=== PATIENT | male | born 1950 | race Caucasian/White ===

== ENCOUNTER 2017-08-14 14:25 | Inpatient (IN) | payer MEDICARE, OTHER ==
[2017-08-14] MEDS ORDERED: ONDANSETRON 4 MG INJ (16:44)
[2017-08-14] MEDS ORDERED: PROPOFOL 20 ML (16:44)
[2017-08-14] MEDS ORDERED: ROCURONIUM 50 MG INJ (16:44)
[2017-08-14] MEDS ORDERED: FENTAnyl 50 MCG/ML VIAL ×2 (17:08→17:49)
[2017-08-14] MEDS: LIDOCAINE 1%/EPI 30 ML INJ (17:14)
[2017-08-14] MEDS: COCAINE 4% 4 ML TOP (17:14)
[2017-08-14] MEDS ORDERED: METOCLOPRAMIDE 10 MG INJ (17:16)
[2017-08-14] MEDS ORDERED: hydrALAzine 20 MG INJ (17:17)
[2017-08-14] MEDS ORDERED: SUCCINYLCHOLINE CHLORIDE 100 MG/5 ML SYG IV (17:18)
[2017-08-14] MEDS ORDERED: HYDROmorphONE (0.2 MG/ML) 10ML SYG IV ×2 (17:30)
[2017-08-14] MEDS: hydrALAzine 20 MG INJ IV ×2 (18:13→21:24)
[2017-08-14] MEDS: LABETALOL HCL 20MG INJ IV (18:16)
[2017-08-14] MEDS: HYDROmorphONE (0.2 MG/ML) 10ML SYG IV (19:13)
[2017-08-14] MEDS: ONDANSETRON 4 MG INJ IV (21:07)
[2017-08-14] MEDS: morphine 10 MG INJ IM (21:32)
[2017-08-15] MEDS: HYDROCODONE/APAP (5/325) TAB PO ×3 (05:19→14:26)
[2017-08-15 05:55] LABS: ADD MAN DIFF? NO
[2017-08-15 06:03] LABS: BASOPHIL # 0.1 10^3/ul (0.0-0.1); BASOPHILS % 0.4 % (0.0-2.0); EOSINOPHILS % 0.2 % (0.0-7.0); HEMATOCRIT 37.5 % (42.0-52.0); HEMOGLOBIN 12.6 g/dl (14.0-18.0); LYMPHOCYTES # 2.1 10^3/ul (0.8-2.9); MEAN CORPUSCULAR HEMOGLOBIN 28.8 pg (29.0-33.0); MEAN CORPUSCULAR HGB CONC 33.6 g/dl (32.0-37.0); MEAN CORPUSCULAR VOLUME 85.6 fl (82.0-101.0); MEAN PLATELET VOLUME 10.4 fl (7.4-10.4); MONOCYTE # 1.1 10^3/ul (0.3-0.9); NEUTROPHIL # 12.6 10^3/ul (1.6-7.5); PLATELET COUNT 273 10^3/UL (140-415); RED BLOOD COUNT 4.38 10^6/ul (4.70-6.10); RED CELL DISTRIBUTION WIDTH 17.2 % (11.5-14.5)
[2017-08-15 06:03] LABS: WHITE BLOOD COUNT 15.9 10^3/ul (4.8-10.8)
[2017-08-15 07:34] LABS: ANION GAP 17 (8-16); BLOOD UREA NITROGEN 24 mg/dl (7-20); CALCIUM 9.2 mg/dl (8.4-10.2); CARBON DIOXIDE 23 mmol/L (21-31); CHLORIDE 105 mmol/L (97-110); CREATININE 1.44 mg/dl (0.61-1.24); GLUCOSE 105 mg/dl (70-220); MAGNESIUM 1.6 mg/dl (1.7-2.5); POTASSIUM 4.5 mmol/L (3.5-5.1); SODIUM 140 mmol/L (135-144)
[2017-08-15] MEDS: LISINOPRIL 5 MG TAB PO (08:55)
[2017-08-15] MEDS: ACETAMINOPHEN 325 MG TAB PO (10:03)
[2017-08-15] MEDS: LACTATED RINGER'S 1,000 ML IV (14:24)
[2017-08-15] MEDS: ONDANSETRON 4 MG INJ IV (14:24)
[2017-08-15] MEDS: OXYCODONE/ACETAMINOPHEN (5/325) TAB PO ×3 (14:28→23:11)
[2017-08-15] MEDS ORDERED: AMLODIPINE 5 MG TAB PO (15:00)
[2017-08-15 16:51] LABS: ADD UMIC YES; UR ASCORBIC ACID NEGATIVE (NEGATIVE); UR BILIRUBIN (Dip) NEGATIVE (NEGATIVE); UR BLOOD (Dip) 2+ mg/dL (NEGATIVE); UR CLARITY CLEAR (CLEAR); UR COLOR YELLOW (YELLOW); UR GLUCOSE (Dip) NEGATIVE (NEGATIVE); UR KETONES (Dip) NEGATIVE (NEGATIVE); UR LEUKOCYTE ESTERASE (Dip) 1+ Leu/ul (NEGATIVE); UR NITRITE (Dip) NEGATIVE (NEGATIVE); UR RBC 9 /HPF (0-5); UR TOTAL PROTEIN (Dip) NEGATIVE (NEGATIVE); UR UROBILINOGEN (Dip) NEGATIVE (NEGATIVE); UR WBC 19 /HPF (0-5)
[2017-08-15 16:59] LABS: SODIUM,URINE RANDOM 45 mmol/L (30-90)
[2017-08-15 16:59] LABS: CREATININE,URINE RANDOM 211.92 mg/dl (20-370)
[2017-08-15] MEDS: MAGNESIUM SULFATE 2 GM/50 ML 50 ML IVPB (17:01)
[2017-08-15] MEDS: TERAZOSIN 5 MG CAP PO (20:25)
[2017-08-15] MEDS: AMLODIPINE 5 MG TAB PO (20:25)
[2017-08-16] MEDS ORDERED: ALBUTEROL/IPRATROPIUM (NEB) 3 ML AMP HHN
[2017-08-16 05:17] LABS: ADD MAN DIFF? NO
[2017-08-16 05:22] LABS: WHITE BLOOD COUNT 11.6 10^3/ul (4.8-10.8)
[2017-08-16 05:22] LABS: BASOPHILS % 0.3 % (0.0-2.0); EOSINOPHILS # 0.1 10^3/ul (0.0-0.5); EOSINOPHILS % 0.7 % (0.0-7.0); HEMATOCRIT 34.1 % (42.0-52.0); HEMOGLOBIN 11.4 g/dl (14.0-18.0); LYMPHOCYTES % 17.2 % (15.0-51.0); MEAN CORPUSCULAR HEMOGLOBIN 29.2 pg (29.0-33.0); MEAN CORPUSCULAR HGB CONC 33.4 g/dl (32.0-37.0); MEAN CORPUSCULAR VOLUME 87.2 fl (82.0-101.0); MEAN PLATELET VOLUME 9.9 fl (7.4-10.4); MONOCYTE # 0.7 10^3/ul (0.3-0.9); NEUTROPHIL # 8.7 10^3/ul (1.6-7.5); NEUTROPHILS % 75.4 % (39.0-77.0); PLATELET COUNT 228 10^3/UL (140-415); RED BLOOD COUNT 3.91 10^6/ul (4.70-6.10)
[2017-08-16 06:11] LABS: ANION GAP 11 (8-16); BLOOD UREA NITROGEN 29 mg/dl (7-20); CALCIUM 8.8 mg/dl (8.4-10.2); CARBON DIOXIDE 27 mmol/L (21-31); CHLORIDE 106 mmol/L (97-110); CREATININE 1.64 mg/dl (0.61-1.24); GLUCOSE 121 mg/dl (70-220); POTASSIUM 4.8 mmol/L (3.5-5.1); SODIUM 139 mmol/L (135-144)
[2017-08-16] MEDS: AMLODIPINE 5 MG TAB PO ×2 (08:46→21:32)
[2017-08-16] MEDS: HYDROCODONE/APAP (5/325) TAB PO (21:32)
[2017-08-16] MEDS: TERAZOSIN 5 MG CAP PO (21:32)
[2017-08-17 05:42] LABS: ADD MAN DIFF? NO
[2017-08-17 06:01] LABS: BASOPHILS % 0.4 % (0.0-2.0); EOSINOPHILS # 0.3 10^3/ul (0.0-0.5); EOSINOPHILS % 2.4 % (0.0-7.0); HEMATOCRIT 33.8 % (42.0-52.0); HEMOGLOBIN 11.3 g/dl (14.0-18.0); LYMPHOCYTES # 3.3 10^3/ul (0.8-2.9); LYMPHOCYTES % 30.2 % (15.0-51.0); MEAN CORPUSCULAR HEMOGLOBIN 29.3 pg (29.0-33.0); MEAN CORPUSCULAR HGB CONC 33.4 g/dl (32.0-37.0); MEAN CORPUSCULAR VOLUME 87.6 fl (82.0-101.0); MEAN PLATELET VOLUME 10.5 fl (7.4-10.4); MONOCYTE # 0.8 10^3/ul (0.3-0.9); MONOCYTES % 7.4 % (0.0-11.0); NEUTROPHIL # 6.4 10^3/ul (1.6-7.5); NEUTROPHILS % 59.3 % (39.0-77.0); PLATELET COUNT 233 10^3/UL (140-415); RED BLOOD COUNT 3.86 10^6/ul (4.70-6.10); RED CELL DISTRIBUTION WIDTH 16.8 % (11.5-14.5)
[2017-08-17 06:01] LABS: WHITE BLOOD COUNT 10.8 10^3/ul (4.8-10.8)
[2017-08-17 06:24] LABS: ANION GAP 14 (8-16); BLOOD UREA NITROGEN 33 mg/dl (7-20); CARBON DIOXIDE 26 mmol/L (21-31); CHLORIDE 102 mmol/L (97-110); CREATININE 1.51 mg/dl (0.61-1.24); GLUCOSE 88 mg/dl (70-220); POTASSIUM 4.5 mmol/L (3.5-5.1); SODIUM 137 mmol/L (135-144)
[2017-08-17] MEDS: AMLODIPINE 5 MG TAB PO ×2 (09:36→21:31)
[2017-08-17] MEDS: ACETAMINOPHEN 325 MG TAB PO (09:54)
[2017-08-17] MEDS ORDERED: DOCUSATE SODIUM 100 MG CAP PO (12:30)
[2017-08-17 12:42] LABS: CREATININE, RANDOM URINE 220 mg/dL (20-370); MICROALBUMIN 3.1 mg/dL; MICROALBUMIN/CREATININE RATIO 14 (<30)
[2017-08-17] MEDS: LACTOBACILLUS RHAMNOSUS CAP PO ×2 (13:21→21:31)
[2017-08-17] MEDS: NICOTINE (14 MG/24 HR) PATCH TRANSDERM (16:08)
[2017-08-17] MEDS: TERAZOSIN 5 MG CAP PO (21:31)
[2017-08-18 05:50] LABS: ADD MAN DIFF? NO
[2017-08-18 05:55] LABS: WHITE BLOOD COUNT 9.2 10^3/ul (4.8-10.8)
[2017-08-18 05:55] LABS: BASOPHIL # 0.1 10^3/ul (0.0-0.1); BASOPHILS % 0.8 % (0.0-2.0); EOSINOPHILS # 0.2 10^3/ul (0.0-0.5); EOSINOPHILS % 2.2 % (0.0-7.0); HEMATOCRIT 34.7 % (42.0-52.0); HEMOGLOBIN 11.7 g/dl (14.0-18.0); LYMPHOCYTES # 2.5 10^3/ul (0.8-2.9); LYMPHOCYTES % 27.7 % (15.0-51.0); MEAN CORPUSCULAR HGB CONC 33.7 g/dl (32.0-37.0); MEAN CORPUSCULAR VOLUME 86.1 fl (82.0-101.0); MEAN PLATELET VOLUME 9.6 fl (7.4-10.4); MONOCYTE # 0.7 10^3/ul (0.3-0.9); MONOCYTES % 7.9 % (0.0-11.0); NEUTROPHIL # 5.6 10^3/ul (1.6-7.5); NEUTROPHILS % 61.2 % (39.0-77.0); PLATELET COUNT 237 10^3/UL (140-415); RED BLOOD COUNT 4.03 10^6/ul (4.70-6.10); RED CELL DISTRIBUTION WIDTH 16.4 % (11.5-14.5)
[2017-08-18 06:20] LABS: INR 0.96; PROTIME 12.9 Sec (11.9-14.9)
[2017-08-18 06:32] LABS: ALANINE AMINOTRANSFERASE 21 IU/L (13-69); ALBUMIN 3.6 g/dl (3.3-4.9); ALBUMIN/GLOBULIN RATIO 1.02; ALKALINE PHOSPHATASE 45 IU/L (42-121); ANION GAP 13 (8-16); ASPARTATE AMINO TRANSFERASE 18 IU/L (15-46); BILIRUBIN,INDIRECT 0.3 mg/dl (0-1.1); BILIRUBIN,TOTAL 0.3 mg/dl (0.2-1.3); BLOOD UREA NITROGEN 36 mg/dl (7-20); CALCIUM 9.2 mg/dl (8.4-10.2); CARBON DIOXIDE 28 mmol/L (21-31); CHLORIDE 103 mmol/L (97-110); CREATININE 1.53 mg/dl (0.61-1.24); GLUCOSE 92 mg/dl (70-220); POTASSIUM 4.7 mmol/L (3.5-5.1); SODIUM 139 mmol/L (135-144); TOTAL PROTEIN 7.1 g/dl (6.1-8.1)
[2017-08-18] MEDS: AMLODIPINE 5 MG TAB PO (09:16)
[2017-08-18] MEDS: LACTOBACILLUS RHAMNOSUS CAP PO (09:17)
== END 2017-08-18 13:26 | disposition home or self-care (01) | DRG 987 ==
LOC: SDS 14:25 → MS1 08-16 12:32
PROC: 09BM0ZZ Excision of Nasal Septum, Open Approach (ICD-10-PCS; principal; 2017-08-14 17:00)
PROC: 09TL0ZZ Resection of Nasal Turbinate, Open Approach (ICD-10-PCS; 2017-08-14 17:00)
DX: N17.9 Acute kidney failure, unspecified (principal); R65.11 Systemic inflammatory response syndrome (SIRS) of non-infectious origin with acute organ dysfunction; J34.2 Deviated nasal septum; J34.3 Hypertrophy of nasal turbinates; D64.9 Anemia, unspecified; E83.42 Hypomagnesemia; F17.200 Nicotine dependence, unspecified, uncomplicated; I12.9 Hypertensive chronic kidney disease with stage 1 through stage 4 chronic kidney disease, or unspecified chronic kidney disease; N18.9 Chronic kidney disease, unspecified; N40.1 Benign prostatic hyperplasia with lower urinary tract symptoms; R39.198 Other difficulties with micturition; R09.81 Nasal congestion; R53.1 Weakness
CPT/HCPCS: 76775; 80048; 80053; 81001; 81003; 82043; 82306; 83735; 84155; 84300; 84443; 85025; 85610